=== PATIENT | female | born 1995 | race Caucasian/White ===

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

== ENCOUNTER 2017-01-20 14:03 | Emergency (ER) | payer OTHER ==
--- NOTE | 2017-01-20 14:07 | EDPHY ---
H & P HPI/ROS: HPI CHIEF COMPLAINT: Urinary frequency, dysuria HISTORY OF PRESENT ILLNESS: The patient very pleasant 21-year-old female, denies any significant medical history except for urinary tract infection previous history of pyelonephritis, she presents emergency room urinary frequency and dysuria less than 24 hours. Very little back pain. No fever no vomiting no abdominal pain. Denies chest pain shortness of breath. Denies being . On control. Past Medical History: Pyelonephritis, E coli. Past Surgical History: No surgical history Social History: Denies daily use of drugs alcohol tobacco products Family History: Noncontributory ROS REVIEW OF SYSTEMS: A comprehensive 10 point review of systems is otherwise negative aside from elements mentioned in the history of present illness. Exam Constitutional appears well nontoxic triage nursing summary reviewed, vital signs reviewed, awake/alert. Eyes normal conjunctivae and sclera, EOMI, PERRLA. HENT normal inspection, atraumatic, moist mucus membranes, no epistaxis, neck supple/ no meningismus, no raccoon eyes. Respiratory clear to auscultation bilaterally, normal breath sounds, no respiratory distress, no wheezing. Cardiovascular rate normal, regular rhythm, no murmur, no edema, distal pulses normal. Gastrointestinal soft, non-tender, no rebound, no guarding, normal bowel sounds, no distension, no pulsatile mass. Genitourinary no CVA tenderness. Musculoskeletal no midline vertebral tenderness, full range of motion, no calf swelling, no tenderness of extremities, no meningismus, good pulses, neurovascularly intact. Skin pink, warm, & dry, no rash, skin atraumatic. Neurologic awake, alert and oriented x 3, AAOx3, moves all 4 extremities equally, motor intact, sensory intact, CN II-XII intact, normal cerebellar, normal vision, normal speech. Psychiatric normal mood/affect. Heme/Lymph/Immune no lymphadenopathy. Differential Diagnosis: Includes but is not limited to in a particular order, UTI, cystitis, pyelonephritis, ectopic , Medical Decision Making: Plan for this patient check urinalysis, test. She appears well nontoxic no CVA tenderness or abdominal pain on exam. No indication for labs. Re-evaluation: Urinalysis indicates UTI. Urine culture sent. Will start on Keflex. Peridium. She understands return emergency room if develops worsening symptoms includes abdominal pain, fever, vomiting back pain. Source: Patient - Medical/Surgical History Hx Asthma: No Hx Chronic Respiratory Disease: No Hx Diabetes: No Hx Cardiac Disease: No Hx Renal Disease: No Hx Cirrhosis: No Hx Alcoholism: No Hx HIV/AIDS: No Hx Splenectomy or Spleen Trauma: No Other PMH: PSHx: denies. PMHx: denies - Social History Smoking Status: Never smoked Constitutional: Initial Vital Signs Temperature (C) 37.3 C 01/20/17 14:06 Heart Rate 97 01/20/17 14:06 Respiratory Rate 18 01/20/17 14:06 Blood Pressure 124/72 H 01/20/17 14:06 O2 Sat (%) 95 01/20/17 14:06 O2 Delivery Mode Room Air Allergies/Adverse Reactions: No Known Allergies Allergy (Verified 01/20/17 14:09) Home Medications: Medication Instructions Recorded Control 01/20/17 Cephalexin [Keflex] 500 mg PO Q6H #28 cap 01/20/17 Phenazopyridine HCl [Pyridium] 200 mg PO TID #15 tab 01/20/17 Medical Decision Making - Data Points Laboratory Results: 01/20/17 01/20/17 14:25 14:25 Urine Color YELLOW Urine Appearance CLEAR Urine pH 5.5 (5.0-7.5) Ur Specific [place] >= 1.030 (1.002-1.030) Urine Protein TRACE H (NEGATIVE) Urine Ketones TRACE H (NEGATIVE) Urine Blood TRACE H (NEGATIVE) Urine Nitrate NEGATIVE (NEGATIVE) Urine Bilirubin NEGATIVE (NEGATIVE) Urine Urobilinogen 1.0 EU EU (0.2-1.0) Ur Leukocyte Esterase NEGATIVE (NEGATIVE) Urine RBC 0-1 /hpf /hpf (0-3) Urine WBC 3-5 /hpf H /hpf (0-3) Ur Epithelial Cells 2+ /lpf H /lpf (NONE-1+) Urine Bacteria 2+ /hpf H /hpf (NONE SEEN) Urine Mucus 3+ /lpf H /lpf (NONE-1+) Urine Yeast OCCASIONAL /hpf H /hpf (NONE SEEN) Urine Glucose NEGATIVE (NEGATIVE) Urine Test NEGATIVE Departure - Departure Disposition: Home, Routine, Self-Care Clinical Impression: Urinary tract infection Qualifiers: Urinary tract infection type: acute cystitis Hematuria presence: with hematuria Qualified Code(s): N30.01 - Acute cystitis with hematuria Condition: Good Instructions: Urinary Tract Infection in Women (ED) Additional Instructions: 1. Drink lots of fluids stay well-hydrated. 2. Take antibiotic as prescribed. 3. Return to the emergency room if develops worsening symptoms includes high fever, vomiting abdominal pain or back pain. Referrals: Ghazala Quintero PA [Primary Care Provider] - As per Instructions Prescriptions: Cephalexin [Keflex] 500 mg PO Q6H #28 cap Phenazopyridine HCl [Pyridium] 200 mg PO TID #15 tab
[2017-01-20 14:08] VITALS: RESP 18; O2SAT 95
[2017-01-20 14:33] LABS: COLOR YELLOW; LEUKOCYTE ESTERASE,URINE NEGATIVE (NEGATIVE); NITRITE,URINE NEGATIVE (NEGATIVE); PH,URINE 5.5 (5.0-7.5)
[2017-01-20 14:51] LABS: RBC,URINE 0-1 /hpf (0-3)
[2017-01-20 14:52] LABS: BACTERIA 2+ /hpf (NONE SEEN); MUCUS 3+ /lpf (NONE-1+); YEAST OCCASIONAL /hpf (NONE SEEN)
[2017-01-20] MEDS ORDERED: CEPHALEXIN 500 MG CAP PO ONE (14:59)
[2017-01-20 15:00] VITALS: BP 121/67; PULSE 82; TEMP 98.8
== END 2017-01-20 15:04 | disposition home or self-care (01) ==
LOC: CED 14:03
DX: N30.01 Acute cystitis with hematuria (principal); B96.89 Other specified bacterial agents as the cause of diseases classified elsewhere
CPT/HCPCS: 81003-PO; 81015-PO; 81025-PO

== ENCOUNTER → 2017-04-04 | Outpatient (CLI) | payer OTHER | LOC: CIMAGING 17:36 | PROVIDERS: ATTEND Family Medicine | DX: R10.9 Unspecified abdominal pain (principal); R30.0 Dysuria; M54.9 Dorsalgia, unspecified; Z87.440 Personal history of urinary (tract) infections | CPT/HCPCS: 76770-PO ==